=== PATIENT | male | born 1960 | race African-American/Black ===

== ENCOUNTER 2016-04-03 16:10 | Emergency (ER) | payer OTHER ==
[~2016-04-03] VITALS: Ht 188 cm; Wt 70.0 kg
[~2016-04-03 16:10] MED LIST: AMLO2.5T PO; BENA25TA8 PO; LEVO.025 PO
[2016-04-03 16:14] VITALS: BP 133/76; PULSE 94; RESP 15; TEMP 97.9; O2SAT 95
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
[2016-04-03] MEDS ORDERED: AMLO2.5T PO (17:08)
[2016-04-03] MEDS ORDERED: LEVO25TA4 PO (17:08)
[2016-04-03 17:58] LABS: BACTERIA, URINE MOD /hpf; BLOOD, URINE TRACE (NEG); COMMENT (UR) CULTURE INDICATED; CULTURE IF INDICATED CULTURE INDICATED; GLUCOSE,URINE NEG (NEG); KETONE, URINE NEG (NEG); NITRITE,URINE NEG (NEG); URINE COLOR LIGHT-YELLOW (YELLW/STRAW)
[2016-04-03] MEDS ORDERED: BACT800T5 PO (18:10)
[2016-04-24] MEDS ORDERED: LEVO25TA4 PO ×2 (12:11→14:22)
[2016-07-31] MEDS ORDERED: LEVO50TA4 PO (13:52)
== END 2016-04-03 18:21 | disposition home or self-care (01) ==
LOC: NETRI 16:10
DX: K62.3 Rectal prolapse (principal); N30.90 Cystitis, unspecified without hematuria; B96.1 Klebsiella pneumoniae [K. pneumoniae] as the cause of diseases classified elsewhere
CPT/HCPCS: 81001; 87077; 87086; 87186; 99283

== ENCOUNTER 2016-04-15 01:55 | Emergency (ER) | payer OTHER ==
[~2016-04-15] VITALS: Ht 188 cm; Wt 70.0 kg
[~2016-04-15 01:55] MED LIST changes: +BACT800T5 PO; -BENA25TA8 PO; -LEVO.025 PO; +LEVO25TA4 PO
[2016-04-15 01:57] VITALS: BP 152/94; PULSE 97; RESP 18; TEMP 97.5; O2SAT 97
[2016-04-15 03:53] LABS: BACTERIA, URINE FEW /hpf; BLOOD, URINE SMALL (NEG); COMMENT (UR) CULTURE INDICATED; CULTURE IF INDICATED CULTURE INDICATED; GLUCOSE,URINE NEG (NEG); KETONE, URINE NEG (NEG); MUCUS URINE FEW /lpf (OCC); URINE COLOR YELLOW (YELLW/STRAW)
[2016-04-15 03:54] LABS: NITRITE,URINE POS (NEG)
[2016-04-15] MEDS ORDERED: CIPR-9 PO (06:59)
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
[2016-04-24] MEDS ORDERED: LEVO25TA4 PO ×2 (12:11→14:22)
[2016-07-31] MEDS ORDERED: LEVO50TA4 PO (13:52)
== END 2016-04-15 07:35 | disposition home or self-care (01) ==
LOC: NEPB 01:55
DX: N39.0 Urinary tract infection, site not specified (principal); B96.1 Klebsiella pneumoniae [K. pneumoniae] as the cause of diseases classified elsewhere; I10 Essential (primary) hypertension; Z72.0 Tobacco use
CPT/HCPCS: 81001; 87077; 87086; 87186; 99283

== ENCOUNTER → 2016-07-31 | Outpatient (CLI) | payer OTHER ==
[~2016-07-31] MED LIST changes: -BACT800T5 PO; +CIPR-9 PO; +IBUP800T23 PO; +LEVO50TA4 PO
[2016-07-31 09:19] LABS: HEMATOCRIT 42.8 % (39.0-51.0); MEAN CELL VOLUME 90.8 FL (80.0-100.0); MEAN CORPUSCULAR HEMOGLOBIN 31.3 PG (27.0-34.0); MEAN CORPUSCULAR HGB CONC 34.5 % (32.0-36.0); PLATELET COUNT 245 TH/MM3 (150-450); RED BLOOD COUNT 4.71 MIL/MM3 (4.50-5.90); RED CELL DISTRIBUTION WIDTH 15.9 % (11.6-17.2); REVIEW FLAG FINAL; WHITE BLOOD COUNT 5.9 TH/MM3 (4.0-11.0)
[2016-07-31 09:56] LABS: ALKALINE PHOSPHATASE 65 U/L (45-117); ALT (GPT) 41 U/L (12-78); ANION GAP 12 MEQ/L (5-15); AST (GOT) 74 U/L (15-37); BICARBONATE 25.1 MEQ/L (21.0-32.0); BLOOD UREA NITROGEN 11 MG/DL (7-18); CHLORIDE 101 MEQ/L (98-107); GLOMERULAR FILTRATION RATE 75 ML/MIN (>89); GLUCOSE,FASTING 78 MG/DL (74-99); SODIUM (NA) 138 MEQ/L (136-145); TOTAL BILIRUBIN ADULT 0.3 MG/DL (0.2-1.0)
== END ==
LOC: CLAB 08:52
PROVIDERS: ATTEND Family Medicine
DX: I10 Essential (primary) hypertension (principal); E03.9 Hypothyroidism, unspecified
CPT/HCPCS: 36415; 80053; 84443; 85027

== ENCOUNTER → 2016-10-12 | Outpatient (CLI) | payer OTHER ==
[~2016-10-12] MED LIST changes: -CIPR-9 PO; -LEVO25TA4 PO; +LEVO75TA3 PO
== END ==
LOC: CLAB 08:34
PROVIDERS: ATTEND Family Medicine
DX: E03.9 Hypothyroidism, unspecified (principal)
CPT/HCPCS: 36415; 84443